=== PATIENT | female | born 2005 | race Caucasian/White ===

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

== ENCOUNTER → 2024-06-06 | Outpatient (CLI) | payer OTHER ==
[2024-06-06 15:02] VITALS: BP 109/71; PULSE 76; RESP 16; TEMP 98.1
--- NOTE | 2024-06-06 15:43 | P.SLEEP ---
History of Present Illness DATE: 06/06/2024 CONSULTATION/NEW PATIENT EVALUATION HISTORY OF PRESENT ILLNESS/SLEEP-WAKE EVALUATION: 79-reuz-vlc-year-old had b een evaluated in the sleep center for possible obstructive sleep apnea hypopnea syndrome and significant excessive daytime sleepiness. SLEEP SCHEDULE: Usually sleep schedule from 1011 PM to 6:30 AM. FALLING ASLEEP: Patient has difficulties to initiate sleep, has TV in bedroom. DURING SLEEP: Patient sleeps in different positions, wakes up from sleep about 3 times. No history of hypnogogical hallucinations, sleep paralysis, or cataplexy. DURING THE DAY/WAKE STATE: In the morning patient wake up tired, has difficulties to pay attention, has problems with memory, concentration, irritability, depression and anxiety. [place] sleepiness scale is in very high range of 17. Patient may take multiple naps during the day. PAST MEDICAL HISTORY: Epilepsy, headaches sometimes after awakenings in the morning, depression, anxiety, PTSD, borderline personality disorder. PAST SURGICAL HISTORY: None. MEDICATIONS: Please see below. SOCIAL HISTORY: Please see below. FAMILY HISTORY: Please see below. REVIEW OF SYSTEMS: Multiple awakenings from sleep, sleepiness during the day. No fevers. No double vision. No recent chest pain. No shortness of breath. No abdominal pain. No bleeding episodes. No blood in urine. . PHYSICAL EXAMINATION: GENERAL: A pleasant patient without any distress. VITAL SIGNS: Please see below, weight 117 pounds, BMI 21. HEENT: PERRLA, EOMI. Evaluation of oropharynx showed tongue protrudes midline, low position of soft palate Mallampati 34, retrognathia 1 to 2 mm. NECK: Supple. No JVD. Thyroid is not palpable. 12.5 inches in circumference. LUNGS: Clear to percussion and to auscultation. Good air exchange. No wheezing or rhonchi. HEART: S1, S2 regular. No murmurs, gallops or rubs. ABDOMEN: Soft and nontender. Bowel sounds are present. No organomegaly appreciated. EXTREMITIES: No clubbing or cyanosis. FARMWORKER BULBS: Awake, alert, and oriented x3. Cranial nerves 2 to 7 intact. There is no fasciculation or atrophy noted. No focal deficits observed. ASSESSMENT: 1. Multiple awakenings from sleep, small oropharyngeal airspace Mallampati 3, difficulties to swallow tablets, sleepiness. Possible obstructive sleep apnea hypopnea syndrome. 2. Significant excessive daytime sleepiness with [place] Sleepiness Scale 17 dictate necessity to include idiopathic hypersomnia and narcolepsy 2 in differential diagnosis. 3. Difficulties to initiate sleep. 4. Epilepsy. 5 depression. 6 . Anxiety. 7. PTSD. 8. Borderline personality disorder. 9 . History of episodes of palpitation. 10. Significant amount of movements during the sleep, possibly periodic limb movements. 11. Headaches sometimes starting in the morning after awakenings. PLAN: 1. Polysomnography for evaluation of patient's breathing during sleep. Multiple sleep latency test if polysomnogram will be negative for obstructive sleep apnea hypopnea syndrome. 2. Following plan after reading sleep study. 3. Preferable position during sleep on the side. 4. Patient does not drive. 5. Sleep hygiene with regular sleep time for at least 7.5-8 hours. 6. Watching weight. Thank you very much for referring this patient for consultation. Sincerely, Den Sheffield MD, PhD, FAASM. 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 History of Any Multi-Drug Resistant Organisms: None Reported Past Surgical History: No Surgical Hx Reported Past Anesthesia/Blood Transfusion Reactions: No Reported Reaction Past Psychological History: Anxiety, Depression Smoking Status: Never smoker Past Alcohol Use History: None Reported Past Drug Use History: None Reported - Past Family History Father Family Medical History: Diabetes Mellitus Medications and Allergies Home Medications Medication Instructions Recorded Confirmed Type Divalproex ER [Depakote ER] 500 mg PO [facility] 09/06/18 06/06/24 History Divalproex Sodium [Depakote ER] 750 mg PO HS 09/06/18 06/06/24 History Venlafaxine HCl [Effexor XR] 150 mg PO DAILY 09/06/18 12/11/18 History Cholecalciferol [Vitamin D3] 5,000 unit PO DAILY 10/07/18 06/06/24 History Melatonin [Melatonin Tr] 10 mg PO HS 10/07/18 12/11/18 History levOCARNitine [l-Carnitine] 500 mg PO BID 10/07/18 12/11/18 History Albuterol Inhaler [Ventolin Hfa 2 puff INHALATION RT-Q6H PRN 12/11/18 12/11/18 History Inhaler] Azithromycin [Zithromax Z-pack] See Taper PO DIRECTED 12/11/18 12/11/18 History Levothyroxine Sodium [Synthroid] 25 mcg PO DAILY 12/11/18 12/11/18 History [place]-3 Fatty Acids/Fish Oil [Fish 1 cap PO DAILY 12/11/18 12/11/18 History Oil 1,000 mg Softgel] Pnv No.95/Ferrous Fum/Folic AC 1 tab PO DAILY 12/11/18 12/11/18 History [ Multivitamin Tablet] guanFACINE HCL [Intuniv] 2 mg PO DAILY 12/11/18 12/11/18 History predniSONE [Deltasone] See Taper PO DIRECTED 12/11/18 12/11/18 History Atomoxetine HCl 25 mg PO DAILY 06/06/24 06/06/24 History Allergies Allergy/AdvReac Type Severity Reaction Status Date / Time No Known Allergies Allergy Verified 12/11/18 21:16 Physical Exam Vitals: Vital Signs Temp Pulse Resp BP Pulse Ox 06/06/24 15:00 98.1 F 76 16 109/71 99 Intake and Output 06/06/24 06/06/24 06/06/24 06:59 14:59 22:59 Other: Weight 53.07 kg Sleep Note - Sleep Data ESS Total: 17 - Sleep Note Sleep Note: Temperature: 98.1 F Pulse Rate: 76 Respiratory Rate: 16 Blood Pressure: 109/71 SpO2: 99 Height: 5 ft 2.5 in Weight: 53.07 kg BMI: Neck Circumference: 12.5
== END ==
LOC: 3 N SLEEP 14:39
PROVIDERS: ATTEND Internal Medicine
DX: G47.10 Hypersomnia, unspecified (principal); G40.909 Epilepsy, unspecified, not intractable, without status epilepticus; F32.A Depression, unspecified; F41.9 Anxiety disorder, unspecified; F43.10 Post-traumatic stress disorder, unspecified; F60.3 Borderline personality disorder; R51.9 Headache, unspecified; R00.2 Palpitations
CPT/HCPCS: 99202

== ENCOUNTER 2024-07-14 19:47 | Outpatient (CLI) | payer OTHER ==
[2024-07-15 10:39] LABS: Urine Alcohol Negative (Negative); Urine Barbiturate Negative (Negative); Urine Cocaine Negative (Negative); Urine Methadone Negative (Negative); Urine Opiates Negative (Negative); Urine Phencyclidine Negative (Negative)
--- NOTE | 2024-07-18 18:07 | P.PCN ---
Description of Procedure: POLYSOMNOGRAPHY AND MSLT REPORTS PROCEDURE(S)/DATE(S): Polysomnography 07/14/2024, multiple sleep latency test 07/15/2024 CLINICAL: Patient has been seen in the sleep center for evaluation of obstructive sleep apnea-hypopnea syndrome. Please see my consultation. Sleep study has been done for evaluation of patient breathing during the sleep. PROCEDURE: The standard montage for clinical polysomnography included the electroencephalogram, the electrooculogram, the mentalis surface e lectromyography and Lead II cardiography. The respiratory battery consisted of measurements of nasal/buccal air flow, pressure transducer measurements from nose, thoracic and/or abdominal effort and intercostal surface electromyography. Video monitoring has been done to check for any parasomnia events. Nocturnal oxyhemoglobin saturations were obtained by finger oximetry. Step-phelps titration with positive airway pressure was utilized to control the respiratory events, if necessary. RESULTS: During the diagnostic sleep study sleep efficiency was slightly decreased to 82%. Latency to sleep onset was prolonged to 33.5 min. Sleep architecture showed stage NI treatment showed 0.4%, Delta sleep was in high range 34.5%, REM sleep was normal 21.8%. Respiratory channel showed 1 obstructive apneas, 0 mixed apneas, 17 central apneas, 6 hypopneas with lowest oxygen level 88%. Total apnea hypopnea index was 3.9. Heart rate was in the range between 64 and 77, average 69. EMG showed 0 periodic limb movements per hour with 0 micro-arousals per hour. Multiple sleep latency test have been done on the following day, consisted from 5 naps. Patient fell asleep on 4 naps. Mean sleep latency 14.4 minutes, which is in normal range. No sleep onset REM periods have been documented IMPRESSIONS: 1. No significant respiratory abnormalities have been documented during the sleep study. 2. No significant periodic limb movements have been documented. 3. Multiple sleep latency test did not confirmed pathological sleepiness. 4. Mild snoring have been documented during testing. Please see other impressions from consultation PLAN: 1. Sleep hygiene with regular time in bed for at least 7-1/2 hours. 2. No driving if feeling sleepiness. 3. I will see patient for follow-up visit to explain results of the test and recommendations. Thank you very much for allowing me to participate in the management of your patient. Sincerely, Den Sheffield, MD, PhD, FAASM. Diplomat of [place] [employer], Sleep Medicine Board by [place] [employer] Immigration Associate of [facility] [place] cc: Jeremiah Dorman MD
== END 2024-07-15 16:50 | disposition home or self-care (01) ==
LOC: 3 N SLEEP 19:47
PROVIDERS: ATTEND Internal Medicine
DX: G47.33 Obstructive sleep apnea (adult) (pediatric) (principal)
CPT/HCPCS: 80306; 95805; 95810

== ENCOUNTER → 2024-07-18 | Outpatient (CLI) | payer OTHER ==
[2024-07-18 15:59] VITALS: BP 102/67; PULSE 88; RESP 16; TEMP 98.2
--- NOTE | 2024-07-18 16:36 | P.PROGSL ---
Subjective DATE: 07/18/2024 FOLLOW UP VISIT. Patient returned to sleep center for follow-up visit related to discuss results of sleep studies. I discussed results of sleep studies with patient and family. Diagnostic polysomnogram showed very minimal abnormalities of respiration. Total apnea hypopnea index was 3.9, which is in normal range. No significant oxygen desaturations have been documented. Lowest oxygen level was 88%. No periodic limb movements have been documented. Multiple sleep latency test which was done on the following day consisted from 5 naps. Patient fell asleep on 4 naps, but not very quickly. Mean sleep latency was 14.4 minutes, which is in normal range. [place] sleepiness scale is 16 today, which still increased. MEDICATIONS: Please see below. During physical exam: GENERAL: A pleasant patient without any distress. VITAL SIGNS: Please see below, weight 120.2 pounds. HEENT: PERRLA, EOMI. NECK: Supple. No JVD. LUNGS: Clear to percussion and to auscultation. Good air exchange. No wheezing or rhonchi. HEART: S1, S2 regular. ABDOMEN: Soft and nontender. EXTREMITIES: No clubbing or cyanosis. TUBE MOUNTER: Awake, alert, and oriented x3. No focal deficit. Impressions: 1. No significant respiratory abnormalities have been documented during the sleep study, normal oxygenation during sleep 2. No periodic limb movements during sleep study.. 3. MSLT did not confirmed pathological sleepiness. 4. Epilepsy. 5. Depression. 6. Anxiety. 7. PTSD. 8. Borderline personality disorder. Plan: 1. Sleep hygiene with regular time in bed for at least 8 hours. 2. Follow-up visit in 1 year, or earlier if necessary. Thank you very much for allowing me to participate in the management of your patient. Den Sheffield MD, PhD, FAASM. Diplomat of [place] [employer], Sleep Medicine Board by [place] of [facility] [place] cc: Jeremiah Dorman MD Objective - Vital Signs Vital Signs: Vital Signs Temp 98.2 F 07/18/24 15:55 Pulse 88 07/18/24 15:55 Resp 16 07/18/24 15:55 BP 102/67 07/18/24 15:55 Pulse Ox 98 07/18/24 15:55 FiO2 Intake & Output 07/17/24 07/18/24 07/18/24 18:59 06:59 18:59 Weight 54.488 kg Home Medications: Home Medications Medication Instructions Recorded Confirmed Type Divalproex ER [Depakote ER] 500 mg PO QAM 09/06/18 06/06/24 History Divalproex Sodium [Depakote ER] 750 mg PO HS 09/06/18 06/06/24 History Venlafaxine HCl [Effexor XR] 150 mg PO DAILY 09/06/18 12/11/18 History Cholecalciferol [Vitamin D3] 5,000 unit PO DAILY 10/07/18 06/06/24 History Melatonin [Melatonin Tr] 10 mg PO HS 10/07/18 12/11/18 History levOCARNitine [l-Carnitine] 500 mg PO BID 10/07/18 12/11/18 History Albuterol Inhaler [Ventolin Hfa 2 puff INHALATION RT-Q6H PRN 12/11/18 12/11/18 History Inhaler] Azithromycin [Zithromax Z-pack] See Taper PO DIRECTED 12/11/18 12/11/18 History Levothyroxine Sodium [Synthroid] 25 mcg PO DAILY 12/11/18 12/11/18 History [place]-3 Fatty Acids/Fish Oil [Fish 1 cap PO DAILY 12/11/18 12/11/18 History Oil 1,000 mg Softgel] Pnv No.95/Ferrous Fum/Folic AC 1 tab PO DAILY 12/11/18 12/11/18 History [ Multivitamin Tablet] guanFACINE HCL [Intuniv] 2 mg PO DAILY 12/11/18 12/11/18 History predniSONE [Deltasone] See Taper PO DIRECTED 12/11/18 12/11/18 History Atomoxetine HCl 25 mg PO DAILY 06/06/24 06/06/24 History
== END ==
LOC: 3 N SLEEP 15:29
PROVIDERS: ATTEND Internal Medicine
DX: G47.33 Obstructive sleep apnea (adult) (pediatric) (principal); G40.909 Epilepsy, unspecified, not intractable, without status epilepticus; F32.A Depression, unspecified; F41.9 Anxiety disorder, unspecified; F43.10 Post-traumatic stress disorder, unspecified; F60.3 Borderline personality disorder
CPT/HCPCS: 99212

== ENCOUNTER → 2024-11-14 | Day surgery (SDC) | payer OTHER ==
[2024-11-12 10:58] VITALS: BMI 22.1
[~2024-11-14] MED LIST: SODIUM CHLORIDE 0.9% 1,000 ML IV SCH
[2024-11-14 11:48] VITALS: BP 122/63; PULSE 77; RESP 18; TEMP 98.9
[2024-11-14] MEDS: IV FLUID CONTINUATION 1,000 ML IV ONE (11:48)
--- NOTE | 2024-11-14 14:27 | P.EPPROC ---
- EP Procedure Note Electrophysiology Procedure Note: Diagnosis: Recurrent presyncope Twelve-lead EKG shows sinus rhythm normal [place] narrow QRS normal ST segments normal QT interval Tilt table test per protocol Baseline blood pressure 109/55 mmHg. Baseline heart rate 93 beats a minute Patient was tilted upright on maculas 70 degrees per protocol There was an immediate increase in her heart rate to about 120 beats a minute with the first 10 minutes It remained in the 120s. When she was laid supine heart rate came down to 75 beats a minute She complained of nausea being dizzy. Impression Normal twelve-lead EKG Orthostatic intolerance
== END ==
LOC: CATHEP 11:32
PROVIDERS: ATTEND Internal Medicine Clinical Cardiac Electrophysiology
DX: G90.A Postural orthostatic tachycardia syndrome [POTS] (principal); G93.32 Myalgic encephalomyelitis/chronic fatigue syndrome; E55.9 Vitamin D deficiency, unspecified; R55 Syncope and collapse; R42 Dizziness and giddiness; R11.0 Nausea; Z79.899 Other long term (current) drug therapy
CPT/HCPCS: 81025; 93660